=== PATIENT | male | born 1975 | race Caucasian/White ===

== ENCOUNTER → 2021-06-17 | Day surgery (SDC) | payer BC ==
[~2021-06-17] MED LIST: Acetaminophen 325 MG Tab PO SCH; HYDROmorphone 0.5 MG/0.5 ML Syringe IVPUSH PRN; Hydrocortisone Sodium Succinate 100 MG/2 ML SDV ONE; Lactated Ringers 1,000 ML IV SCH; Lactated Ringers 1,000 ML ONE; Lidocaine 1%/Sod Bicarbonate in NS 8.4% 1 ML Syringe IDERM PRN; Morphine 8 MG, EPINEPHrine 0.3 MG, Cefuroxime 750 MG, Ketorolac 30 MG, Sodium Chloride ... PRN; Potassium Chloride 10 MEQ in Premix Bag 1 BAG IV SCH; Pregabalin 25 MG Cap PO SCH; Propofol 200 MG/20 ML SDV ONE; Sodium Chloride 0.9% 10 ML Syringe FLUSH PRN; Sodium Chloride 0.9% 10 ML Syringe FLUSH SCH; Vancomycin 1 GM SDV ONE; ceFAZolin 1 GM Vial ONE; fentaNYL 100 MCG/2 ML SDV IVPUSH PRN; fentaNYL 100 MCG/2 ML SDV ONE; oxyCODONE 5 MG Tab PO ONE
--- NOTE | 2021-06-17 07:54 | PCM.PREANE ---
Preanesthetic Assessment - Procedure Proposed Procedure: Right total hip arthroplasty - Anesthesia/Transfusion/Family Hx Anesthesia History: Prior Anesthesia Without Reaction Family History of Anesthesia Reaction: No Transfusion History: No Prior Transfusion(s) Intubation History: Unknown - Review of Systems General: No Symptoms Pulmonary: No Symptoms Cardiovascular: No Symptoms Gastrointestinal: No Symptoms Neurological: No Symptoms Other: Reports: None - Physical Assessment NPO Status Date: 06/16/21 NPO Status Time: 21:00 Vital Signs: 125/88 HR 76 RR 16 98% Height: 1.83 m Weight: 86 kg ASA Class: 2 Mental Status: Alert & Oriented x3 Airway Class: Mallampati = 2 Dentition: Reports: Caries Thyro-Mental Finger Breadths: 3 Mouth Opening Finger Breadths: 3 ROM/Head Extension: Full Lungs: Clear to Auscultation, Normal Respiratory Effort Cardiovascular: Regular Rate, Regular Rhythm, No Murmurs - Lab Values: Labs drawn this morning and awaiting results - Imaging/EKG Impressions: EKG NSR HR 92 - Allergies Allergies/Adverse Reactions: Allergies Allergy/AdvReac Type Severity Reaction Status Date / Time No Known Allergies Allergy Verified 06/16/21 13:53 - Acknowledgements Anesthesia Type Planned: General Anesthesia, Spinal Pt an Appropriate Candidate for the Planned Anesthesia: Yes Alternatives and Risks of Anesthesia Discussed w Pt/Guardian: Yes Pt/Guardian Understands and Agrees with Anesthesia Plan: Yes PreAnesthesia Questionnaire HEENT History: Reports: None Cardiovascular History: Reports: None Respiratory History: Reports: None Gastrointestinal History: Reports: Chronic Diarrhea, GERD, Other (See Below) Other Gastrointestinal History: crohns, hypokalemia Genitourinary History: Reports: None [employer]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 Musculoskeletal History: Reports: Arthritis, Neck Pain, Chronic (cervical radiculopathy-patient stated that he hasn't had pain for the last few years) Neurological History: Reports: None Psychiatric History: Reports: Anxiety, Other (See Below) (insomnia) Endocrine/Metabolic History: Reports: Other (See Below) (chronic steriods for crohns) Hematologic History: Reports: None Immunologic History: Reports: None Oncologic (Cancer) History: Reports: None Dermatologic History: Reports: None - Past Surgical History GI Surgical History: Reports: Appendectomy, Colonoscopy Musculoskeletal Surgical History: Reports: Other (See Below) (left knee surgery in past, right ankle plate) - SUBSTANCE USE Tobacco Use Status *Q: Never Tobacco User Tobacco Use Within Last Twelve Months: No Second Hand Smoke Exposure: No Days Per Week of Alcohol Use: 2 Number of Drinks Per Day: 3 Total Drinks Per Week: 6 Recreational Drug Use History: No - HOME MEDS Home Medications: Home Meds Budesonide [Budesonide EC] 3 mg PO DAILY 06/16/21 [History] Omeprazole Magnesium [Prilosec Otc] 20 mg PO DAILY 06/16/21 [History] Temazepam 15 mg PO BEDTIME 06/16/21 [History] Aspirin [Aspirin EC] 325 mg PO BID #70 tab 06/17/21 [Rx] oxyCODONE 5 - 10 mg PO Q4H PRN #40 tab 06/17/21 [Rx] - CURRENT (IN HOUSE) MEDS Current Meds: Current Medications Acetaminophen (Acetaminophen 325 Mg Tab) 975 mg PO ONETIME JAMAL Stop: 06/17/21 12:01 Morphine Sulfate 8 mg/Epinephrine HCl 0.3 mg/Cefuroxime Sodium 750 mg/Ketorolac Tromethamine 30 mg/Sodium Chloride 7.9 ml 0 mg .XX ASDIRECTED PRN PRN Reason: Pain Stop: 06/17/21 15:00 Lactated Ringer's (Ringers, Lactated) 1,000 mls @ 125 mls/hr IV ASDIRECTED JAMAL Stop: 06/17/21 23:00 Lidocaine/Sodium Bicarbonate (Lidocaine 1%/Sod Bicarbonate In Ns 8.4% 1 Ml Syringe) 0.25 ml IDERM ONETIME PRN PRN Reason: Prior to IV Start Stop: 06/17/21 18:00 Oxycodone HCl (Oxycodone Er 10 Mg Tab.Er) 10 mg PO ONETIME JAMAL Stop: 06/17/21 12:01 Pregabalin (Pregabalin 25 Mg Cap) 50 mg PO ONETIME JAMAL Stop: 06/17/21 12:01 Sodium Chloride (Sodium Chloride 0.9% 10 Ml Syringe) 10 ml FLUSH 09,2100 JAMAL Stop: 06/17/21 18:00 Discontinued Medications Lactated Ringer's (Ringers, Lactated) 1,000 mls @ 125 mls/hr IV ASDIRECTED JAMAL Stop: 06/12/21 23:00 Lidocaine/Sodium Bicarbonate (Lidocaine 1%/Sod Bicarbonate In Ns 8.4% 1 Ml Syri nge) 0.25 ml IDERM ONETIME PRN PRN Reason: Prior to IV Start Stop: 06/12/21 18:00 Sodium Chloride (Sodium Chloride 0.9% 10 Ml Syringe) 10 ml FLUSH ASDIRECTED PRN PRN Reason: Keep Vein Open Stop: 06/12/21 18:00
[2021-06-17] MEDS: oxyCODONE ER 10 MG TAB.ER PO SCH ×2 (09:21→09:22)
--- NOTE | 2021-06-17 12:15 | PCM.POSTAN ---
POST ANESTHESIA ASSESSMENT - MENTAL STATUS Mental Status: Alert, Oriented - VITAL SIGNS Vital Signs: PACU Vital Signs 127/82 91 HR 96% 16 RR 98 F - RESPIRATORY Respiratory Status: Respiratory Rate WNL, Airway Patent, O2 Saturation Stable - CARDIOVASCULAR CV Status: Pulse Rate WNL, Blood Pressure Stable - GASTROINTESTINAL GI Status: No Symptoms - PAIN Pain Score: 0 (post SAB) - POST OP HYDRATION Hydration Status: Adequate & Stable
--- NOTE | 2021-06-17 12:35 | CR ---
Pelvis and right hip: AP view of the pelvis was obtained as well as crosstable lateral views of the right hip. Comparison: Prior right hip CT study of 05/29/21. Right hip prosthesis is seen. Components are aligned. Underlying bony structures are intact. Soft tissue air is noted. Impression: 1. Satisfactory postoperative radiographic appearance of recently placed right hip prosthesis. Diagnostic code #2
--- NOTE | 2021-06-17 15:56 | PCM48HPAN ---
Post Anesthesia Note - EVALUATION WITHIN 48HRS OF ANESTHETIC Vital Signs in Normal Range: Yes Patient Participated in Evaluation: Yes Respiratory Function Stable: Yes Airway Patent: Yes Cardiovascular Function Stable: Yes Hydration Status Stable: Yes Pain Control Satisfactory: Yes Nausea and Vomiting Control Satisfactory: Yes Mental Status Recovered: Yes Vital Signs: Last Vital Signs Temp 98.0 F 06/17/21 15:00 Pulse 89 06/17/21 15:00 Resp 16 06/17/21 15:00 BP 118/67 06/17/21 15:00 Pulse Ox 93 L 06/17/21 15:00
--- NOTE | 2021-07-07 21:24 | PCM.OPNOTE ---
- General Post-Op/Procedure Note Date of Surgery/Procedure: 06/17/21 Operative Procedure(s): right total hip arthroplasty with [employer] robot[employer] Pre Op Diagnosis: right hip osteoarthrsosi Post-Op Diagnosis: Same Anesthesia Technique: Local, MAC, Spinal Primary Surgeon: Devin Argueta Anesthesia Provider: Roberto Carlos Stein Software Development Test Engineer: Khadijah Carver Software Development Test Engineer: Myrtle Javier EBL in mLs: 150 Complications: None Condition: Good Free Text/Narrative:: 56 8 132 degree 28+0 mdm
--- NOTE | 2021-07-08 06:32 | OR ---
DATE OF OPERATION: 06/17/2021 SURGEON: Devin Argueta MD OPERATION PERFORMED: Right total hip arthroplasty with [employer] robotics. PREOPERATIVE DIAGNOSIS: Right hip osteoarthrosis. POSTOPERATIVE DIAGNOSIS: Right hip osteoarthrosis. ANESTHESIA: Local MAC with spinal. ANESTHESIA PROVIDER: Pippa Hall. ORGANIZATIONAL EFFECTIVENESS CONSULTANT: Khadijah Carver PA-C; and Myrtle Javier LPN. ESTIMATED BLOOD LOSS: 150 mL. COMPLICATIONS: None. CONDITION: Stable. IMPLANTS: 1. Leah size 56 mm solid Tritanium II acetabular cup. 2. Leah size 8 132-degree Accolade II stem. 3. 28 +0 MDM components. DESCRIPTION OF PROCEDURE: The patient was identified in the preoperative holding area. Proper site was marked and identified by the surgeon. The patient was taken back to the operative theater, where after adequate anesthesia, the patient was placed in a left lateral decubitus position. Axillary roll was placed. Pegs were placed and well padded. The patient's gluteal fold was parallel to the floor. Right hip was then sterilely prepped and draped in the usual sterile fashion. OR time- out was performed. The patient received 2 g IV Ancef. Three small poke holes were placed on the iliac crest 3 fingerbreadths posterior to the ASIS. Three 4.0 Schanz pins were then placed and the [employer] robotic array was placed down onto the iliac crest. Standard posterior incision was made. This was taken down to the IT band and gluteal fascia which was incised along the incisional length. Charnley retractor was then placed. Checkpoint was placed in the greater trochanter. Hip lengths were measured using [employer] robotics. Takedown of the short external rotators was done as well as capsulotomy from the piriformis down to the level of lesser trochanter. Hip was then dislocated. Neck cut was completed and found to be adequate. Attention was turned to the acetabulum, and anterior and posterior acetabular retractors were placed. Circumferential removal of the labrum as well as pulvinar was done at this time. Checkpoint was placed on the superior lateral rim of the acetabulum and 3 checkpoints were then utilized on the iliac crest. 15 points were taken intra-articularly and extra-articularly around the acetabulum. A 56 mm reamer was then placed on the [employer] robotic arm and reaming was completed at 45 degrees of abduction and 20 degrees of anteversion. He was found to have a good bony bleeding bed. A 56 mm cup was placed on [employer] robotic arm and was impacted into place and found to be in adequate position. The MDM liner was then impacted into place. Attention was turned to the femur. Box chisel was used out laterally. Starter awl was placed down the canal. Starting with a 0 broach, I was able to broach up to a size 8, which was found to be rotationally and vertically stable. Size 8 132-degree with 28 +0 components were trialed. The patient had adequate anglican of leg lengths and was stable throughout range of motion. Trial implants were then removed. A size 8 Accolade II stem 132 degrees was then impacted into place and a 28 +0 MDM components were constructed on the back table and then impacted onto the stem. Hip was then relocated. #5 Ethibond suture was used for closure of the short external rotators and capsule. 1 L pulse lavage irrigation with Ancef was irrigated through the hip along with 400 mL of IrriSept irrigation. Topical tranexamic acid and vancomycin powder were applied. Periarticular injection was completed. #2 barbed suture was used for closure of the IT band and gluteal fascia. 2-0 Vicryl was used subcutaneously and Prineo was used for skin closure. The patient tolerated the procedure well and was sent to PACU in stable condition. Please note, all [employer] robotic arrays and checkpoints were removed before closure. MMODAL /[id number]
== END | disposition home or self-care (01) ==
LOC: JD.SDS 08:08
PROVIDERS: ATTEND Orthopaedic Surgery
DX: M16.11 Unilateral primary osteoarthritis, right hip (principal); G47.30 Sleep apnea, unspecified; E87.6 Hypokalemia; Z79.899 Other long term (current) drug therapy; Z90.49 Acquired absence of other specified parts of digestive tract; Z01.812 Encounter for preprocedural laboratory examination; Z20.822 Contact with and (suspected) exposure to COVID-19
CPT/HCPCS: 27130; 36415; 73501; 80048; 86850; 86900; 86901; 87635; 97116; 97161; A9270; C1713; C1776; J0171; J0690; J0697; J1170; J1720; J1885; J2270; J2704; J3010; J3370; J3480; J7120; 01214; U0002